=== PATIENT | female | born 1960 | race Caucasian/White ===

== ENCOUNTER 2017-12-19 17:17 | Emergency (ER) | payer SELFPAY ==
[2017-12-19 17:42] VITALS: BP 142/80
--- NOTE | 2017-12-19 17:46 | UC ---
General HPI - HPI Summary HPI Summary: her to get scopolamine patch refilled---states she has been using them for years -states her pcp has retired - History of Current Complaint Chief Complaint: UCMedRefill Stated Complaint: MEDICINE REFILL Time Seen by Provider: 12/19/17 17:40 Hx Obtained From: Patient Onset/Duration: Sudden Onset Timing: Constant Onset Severity: Mild Current Severity: None - Allergy/Home Medications Allergies/Adverse Reactions: Allergies Allergy/AdvReac Type Severity Reaction Status Date / Time No Known Allergies Allergy Verified 10/22/15 17:27 PMH/Surg Hx/FS Hx/Imm Hx Previously Healthy: No - motion sickness Other History Of: Negative For: Anticoagulant Therapy - Surgical History Surgical History: Yes Surgery Procedure, Year, and Place: tubal ligation - Family History Known Family History: Positive: Other - PSORIASIS - DAD Negative: Hypertension - Social History Occupation: Employed Full-time Lives: With Family Alcohol Use: Weekly Substance Use Type: None Smoking Status (MU): Light Every Day Tobacco Smoker Type: Cigarettes Amount Used/How Often: 5 cig./day - Immunization History Most Recent Influenza Vaccination: fall Most Recent Tetanus Shot: up to date Most Recent Pneumonia Vaccination: none Review of Systems Constitutional: Negative Skin: Negative Eyes: Negative ENT: Negative Respiratory: Negative Cardiovascular: Negative Gastrointestinal: Negative Genitourinary: Negative Motor: Negative Neurovascular: Negative Musculoskeletal: Negative Neurological: Negative Psychological: Negative Is Patient Immunocompromised?: No All Other Systems Reviewed And Are Negative: Yes Physical Exam Triage Information Reviewed: Yes Appearance: Well-Appearing, No Pain Distress, Well-Nourished Vital Signs Reviewed: Yes Eye Exam: Normal Eyes: Positive: Conjunctiva Clear ENT Exam: Normal ENT: Negative: Tonsillar swelling, Tonsillar exudate, Trismus, Muffled voice, Hoarse voice Dental Exam: Normal Neck exam: Normal Neck: Positive: Supple, Nontender Respiratory Exam: Normal Respiratory: Positive: Chest non-tender, No respiratory distress, No accessory muscle use Cardiovascular Exam: Normal Cardiovascular: Positive: RRR, Brisk Capillary Refill Musculoskeletal Exam: Normal Musculoskeletal: Positive: Strength Intact, ROM Intact, No Edema Neurological Exam: Normal Neurological: Positive: Alert, Muscle Tone Normal Psychological Exam: Normal Skin Exam: Normal Course/Dx - Course Course Of Treatment: refill scopolamine and refer to to pcp - Differential Dx - Multi-Symptom Provider Diagnoses: motion illness Discharge - Discharge Plan Condition: Stable Disposition: HOME Prescriptions: Scopolamine 1.5 mg* PATCH* [Transderm-Scop 1.5 mg Patch*] 1.5 mg TRANSDERM Q72HR #10 patch Patient Education Materials: Vertigo (ED), Hypertension (ED) [place] [facility] [place] [facility] [place]] - 2 Weeks
== END 2017-12-19 17:51 | disposition home or self-care (01) ==
LOC: UCEAST 17:17
DX: T75.3XXA Motion sickness, initial encounter (principal); Y92.818 Other transport vehicle as the place of occurrence of the external cause; Z76.0 Encounter for issue of repeat prescription; F17.210 Nicotine dependence, cigarettes, uncomplicated
CPT/HCPCS: 99212; G0463

== ENCOUNTER 2018-02-03 04:41 | Emergency (ER) | payer SELFPAY ==
[2018-02-03] MEDS ORDERED: Albuterol/Ipratropium NEB.SOL* Albuterol 2.5 MG/Ipratropium 0.5 MG 3 ML INH ONE (05:10)
[2018-02-03] MEDS ORDERED: Ibuprofen TAB* 800 MG PO ONE (05:11)
[2018-02-03] MEDS ORDERED: Oseltamivir CAP* 75 MG CAP PO ONE (06:13)
[2018-02-03] MEDS: Albuterol 2.5 MG/3 ML NEB.SOL* (0.083%) INH SCH (06:21)
[2018-02-03] MEDS ORDERED: Albuterol HFA INHALER* 8 gm MDI INH ONE (06:23)
[2018-02-03] MEDS ORDERED: Albuterol HFA INHALER* 8 gm MDI INH PRN (06:23)
--- NOTE | 2018-02-03 06:28 | ED ---
Sony Whipple Stephanie, scribed for Blanca Stephens MD on 02/03/18 at 0539 . Influenza-Like Illness - HPI Summary HPI Summary: The pt is a 58 y/o F presenting to the ED with c/o influenza-like symptoms that began 3 weeks ago. Symptoms include SOB, sore throat, LOC, chest congestion, GARAY and fever (101 F). - History of Current Complaint Chief Complaint: EDFluSymptoms Time Seen by Provider: 02/03/18 05:00 Hx Obtained From: Patient Onset/Duration: Gradual Onset, Lasting Weeks - 3, Still Present Severity: Moderate Associated Signs & Symptoms: Fever, Sore Throat, Headache - Allergy/Home Medications Allergies/Adverse Reactions: Allergies Allergy/AdvReac Type Severity Reaction Status Date / Time sulfamethoxazole Allergy Nausea And Verified 02/03/18 04:47 [From Bactrim] Vomiting trimethoprim [From Bactrim] Allergy Nausea And Verified 02/03/18 04:47 Vomiting PMH/Surg Hx/FS Hx/Imm Hx Endocrine/Hematology History: Denies: Hx Anticoagulant Therapy, Hx Diabetes, Hx Systemic Lupus Erythematosus, Hx Thyroid Disease Cardiovascular History: Denies: Hx Congestive Heart Failure, Hx Hypertension, Hx Pacemaker/ICD Respiratory History: Denies: Hx Asthma, Hx Chronic Obstructive Pulmonary Disease (COPD) GI History: Denies: Hx Ulcer History: Denies: Hx Dialysis, Hx Renal Disease Musculoskeletal History: Denies: Hx Rheumatoid Arthritis Neurological History: Denies: Hx Dementia, Hx Seizures Psychiatric History: Denies: Hx Substance Abuse - Cancer History Hx Chemotherapy: No - Surgical History Surgery Procedure, Year, and Place: tubal ligation Infectious Disease History: No Infectious Disease History: Denies: Hx Hepatitis, Hx Human Immunodeficiency Virus (HIV), History Other Infectious Disease, Traveled Outside the [place] in Last 30 Days - Family History Known Family History: Positive: Other - PSORIASIS - DAD Negative: Hypertension - Social History Occupation: Employed Full-time Lives: With Family Alcohol Use: Weekly Substance Use Type: Reports: None Smoking Status (MU): Light Every Day Tobacco Smoker Type: Cigarettes Amount Used/How Often: 5 cig./day Review of Systems Positive: Fever Positive: Sore Throat Positive: Other - chest congestion Positive: Shortness Of Breath Neurological: Other - LOC Positive: Headache All Other Systems Reviewed And Are Negative: Yes Physical Exam - Summary Physical Exam Summary: VITAL SIGNS: Reviewed. GENERAL: Patient is a well-developed and nourished FEMALE who is lying comfortable in the stretcher. Patient is not in any acute respiratory distress. HEAD AND FACE: No signs of trauma. No ecchymosis, hematomas or skull depressions. No sinus tenderness. EYES: PERRLA, EOMI x 2, No injected conjunctiva, no nystagmus. EARS: Hearing grossly intact. Ear canals and tympanic membranes are within normal limits. MOUTH: Oropharynx within normal limits. NECK: Supple, trachea is midline, no adenopathy, no JVD, no carotid bruit, no c- spine tenderness, neck with full ROM. CHEST: Symmetric, no tenderness at palpation LUNGS: decreased breath sounds bilaterally. No wheezing or crackles. CVS: Regular rate and rhythm, S1 and S2 present, no murmurs or gallops appreciated. ABDOMEN: Soft, non-tender. No signs of distention. No rebound no guarding, and no masses palpated. Bowel sounds are normal. EXTREMITIES: FROM in all major joints, no edema, no cyanosis or clubbing. NEURO: Alert and oriented x 3. No acute neurological deficits. Speech is normal and follows commands. SKIN: Dry and warm Triage Information Reviewed: Yes Vital Signs On Initial Exam: Initial Vitals Temp Pulse Resp BP Pulse Ox 97.1 F 102 16 128/82 92 02/03/18 04:44 02/03/18 04:44 02/03/18 04:44 02/03/18 04:44 02/03/18 04:44 Vital Signs Reviewed: Yes Diagnostics - Vital Signs Vital Signs Temp Pulse Resp BP Pulse Ox 02/03/18 04:44 97.1 F 102 16 128/82 92 - Laboratory Lab Statement: Any lab studies that have been ordered have been reviewed, and results considered in the medical decision making process. - Radiology CXR Xray Interpretation: No Acute Changes Radiology Interpretation Completed By: ED Physician - No acute process. Pending official report. Flu Symptom Course/Dx - Course Course Of Treatment: The pt is a 58 y/o F presenting to the ED with c/o influenza-like symptoms that began 3 weeks ago. Symptoms include SOB, sore throat, LOC, chest congestion, GARAY and fever (101 F). The pt tested positive for influenza. She will be discharged home. - Diagnoses Provider Diagnoses: Influenza Discharge - Discharge Plan Condition: Stable Disposition: HOME Patient Education Materials: Influenza (ED) Referrals: No Primary Care Phys,NOPCP [Primary Care Provider] - Additional Instructions: RETURN TO EMERGENCY DEPARTMENT FOR ANY NEW OR WORSENING SYMPTOMS The documentation as recorded by the Sony boyd Stephanie accurately reflects the service I personally performed and the decisions made by , Blanca Stephens MD.
[2018-02-03 06:39] VITALS: BP 123/84
--- NOTE | 2018-02-03 08:26 | RAD ---
INDICATION: Cough COMPARISON: Chest x-ray dated December 02, 2015 TECHNIQUE: Single AP portable view of the chest was obtained. FINDINGS: Image quality is compromised due to the relative inferiority of a portable chest x-ray. The heart and mediastinum exhibit normal size and contour. The lungs are grossly clear. There is no evidence of a large pleural effusion. Visualized bones are normal for the patient's age. IMPRESSION: No radiographic evidence for acute cardiopulmonary abnormality on this portable chest x-ray.
== END 2018-02-03 06:35 | disposition home or self-care (01) ==
LOC: ED 04:41
DX: J11.1 Influenza due to unidentified influenza virus with other respiratory manifestations (principal); F17.210 Nicotine dependence, cigarettes, uncomplicated; Z88.3 Allergy status to other anti-infective agents
CPT/HCPCS: 71045; 87502; 94640; 99283; A9270-GY

== ENCOUNTER 2018-05-26 18:35 | Emergency (ER) | payer SELFPAY ==
[2018-05-26 19:07] VITALS: BP 129/78
--- NOTE | 2018-05-26 20:05 | UC ---
General HPI - HPI Summary HPI Summary: Patient is a 58-year-old female presenting to the requesting refill on her scopolamine patch medication. Patient of and he has been out of town for a few weeks. She has been taking this medication since she was a teenager. The patch is placed and removed every 3 days and she is requesting a 30 day supply. This is for ongoing dizziness. She is currently asymptomatic. - History of Current Complaint Hx Obtained From: Patient Pain Intensity: 0 <Gracy Fisher - Last Filed: 05/26/18 20:02> <Taylor Carlos - Last Filed: 05/26/18 20:53> - History of Current Complaint Chief Complaint: UCMedRefill Stated Complaint: REFILL ON MEDS Time Seen by Provider: 05/26/18 19:02 - Allergy/Home Medications Allergies/Adverse Reactions: Allergies Allergy/AdvReac Type Severity Reaction Status Date / Time sulfamethoxazole Allergy Nausea And Verified 05/26/18 19:08 [From Bactrim] Vomiting trimethoprim [From Bactrim] Allergy Nausea And Verified 05/26/18 19:08 Vomiting PMH/Surg Hx/FS Hx/Imm Hx Previously Healthy: Yes Other History Of: Negative For: Anticoagulant Therapy - Surgical History Surgical History: Yes Surgery Procedure, Year, and Place: tubal ligation - Family History Known Family History: Positive: Other - PSORIASIS - DAD Negative: Hypertension - Social History Occupation: Employed Full-time Lives: With Family Alcohol Use: Weekly Substance Use Type: None Smoking Status (MU): Light Every Day Tobacco Smoker Type: Cigarettes Amount Used/How Often: 5 cig./day - Immunization History Most Recent Influenza Vaccination: fall Most Recent Tetanus Shot: up to date Most Recent Pneumonia Vaccination: none <Gracy Fisher - Last Filed: 05/26/18 20:02> Review of Systems Constitutional: Negative Skin: Negative Respiratory: Negative Cardiovascular: Negative Gastrointestinal: Negative Motor: Negative Neurological: Negative Is Patient Immunocompromised?: No All Other Systems Reviewed And Are Negative: Yes <Gracy Fisher - Last Filed: 05/26/18 20:02> Physical Exam Triage Information Reviewed: Yes Appearance: Well-Appearing, No Pain Distress, Well-Nourished Vital Signs: Initial Vital Signs Temp 98.2 F 05/26/18 19:02 Pulse 97 05/26/18 19:02 Resp 20 05/26/18 19:02 BP 129/78 05/26/18 19:02 Pulse Ox 96 05/26/18 19:02 Vital Signs Reviewed: Yes Eye Exam: Normal Neck exam: Normal Neck: Positive: Supple, No Lymphadenopathy Respiratory Exam: Normal Respiratory: Positive: Chest non-tender, Lungs clear Cardiovascular Exam: Normal Cardiovascular: Positive: RRR Musculoskeletal Exam: Normal Psychological Exam: Normal Psychological: Positive: Normal Response To Family Skin Exam: Normal <Gracy Fisher - Last Filed: 05/26/18 20:02> Vital Signs: Initial Vital Signs Temp 98.2 F 05/26/18 19:02 Pulse 97 05/26/18 19:02 Resp 20 05/26/18 19:02 BP 129/78 05/26/18 19:02 Pulse Ox 96 05/26/18 19:02 <Taylor Carlos - Last Filed: 05/26/18 20:53> Course/Dx - Course Course Of Treatment: refill medication on scopolamine patch sent to pharmacy. She is given 30 day supply and is to follow back up with her PCP for further prescriptions. - Differential Dx - Multi-Symptom Provider Diagnoses: Refill request <Gracy Fisher - Last Filed: 05/26/18 20:02> Discharge - Sign-Out/Discharge Documenting (check all that apply): Discharge/Admit/Transfer - Billing Disposition and Condition Condition: STABLE Disposition: Home <Gracy Fisher - Last Filed: 05/26/18 20:02> - Billing Disposition and Condition Condition: STABLE Disposition: Home <Taylor Carlos - Last Filed: 05/26/18 20:53> - Discharge Plan Condition: Stable Disposition: HOME Referrals: No Primary Care Phys,NOPCP [Primary Care Provider] - Attestation Statement User Type: Provider - I was available for consult. This patient was seen by the JENNIFER. The patient was not presented to, seen by, or examined by me. -Ljj <Taylor Carlos - Last Filed: 05/26/18 20:53>
== END 2018-05-26 19:09 | disposition home or self-care (01) ==
LOC: UCEAST 18:35
DX: Z76.0 Encounter for issue of repeat prescription (principal)
CPT/HCPCS: 99201; 99212; G0463

== ENCOUNTER 2018-07-03 11:34 | Emergency (ER) | payer SELFPAY ==
[2018-07-03 12:28] VITALS: BP 123/63
--- NOTE | 2018-07-03 15:17 | UC ---
General HPI - HPI Summary HPI Summary: 58 y/o female presents to the urgent care requesting medication refill for her Scopolamine patches for her Vertigo.. Pt reports her PCP retired and her health insurance was change and she hasn't found a PCP yet that is in her network. Pt states she has taking Scopolamine patch for the past 20 years. It is the only medication that helps her w/ her vertigo and allows her to be functional. Pt denies fever, dizziness, GARAY, SOB, chest pain, abdominal pain, N/v /D. - History of Current Complaint Chief Complaint: UCMedRefill Stated Complaint: RX REFILL Time Seen by Provider: 07/03/18 14:52 Hx Obtained From: Patient Hx Last Menstrual Period: post menopause Onset/Duration: Gradual Onset, Still Present Timing: Intermittent Episodes Lasting: Onset Severity: Mild Current Severity: None Pain Intensity: 0 Associated Signs & Symptoms: Negative: Agitation, Confusion, Chest Pain, Dizziness, Nausea, SOB, Vomiting - Allergy/Home Medications Allergies/Adverse Reactions: Allergies Allergy/AdvReac Type Severity Reaction Status Date / Time sulfamethoxazole Allergy Nausea And Verified 05/26/18 19:08 [From Bactrim] Vomiting trimethoprim [From Bactrim] Allergy Nausea And Verified 05/26/18 19:08 Vomiting PMH/Surg Hx/FS Hx/Imm Hx Previously Healthy: Yes Respiratory History: Asthma Other Neurological History: Vertigo Other History Of: Negative For: Anticoagulant Therapy - Surgical History Surgical History: Yes Surgery Procedure, Year, and Place: tubal ligation - Family History Known Family History: Positive: Hypertension, Diabetes Family History: Vertigo, Lupus, Breast cancer, Prostate cancer and PSORIASIS - DAD - Social History Alcohol Use: Weekly Substance Use Type: None Smoking Status (MU): Light Every Day Tobacco Smoker Type: Cigarettes Amount Used/How Often: 5 cig./day - Immunization History Most Recent Influenza Vaccination: 2015 fall Most Recent Tetanus Shot: up to date Most Recent Pneumonia Vaccination: none Review of Systems Constitutional: Negative Skin: Negative Eyes: Negative ENT: Negative Respiratory: Negative Cardiovascular: Negative Gastrointestinal: Negative Genitourinary: Negative Motor: Negative Neurovascular: Negative Musculoskeletal: Negative Neurological: Negative Psychological: Negative Is Patient Immunocompromised?: No All Other Systems Reviewed And Are Negative: Yes Physical Exam - Summary Physical Exam Summary: VITAL SIGNS: Reviewed. GENERAL: Patient is a well developed and nourished obese female who is sitting comfortable in the examining table. Patient is not in any acute respiratory distress. HEAD AND FACE: No signs of trauma. No ecchymosis, hematomas or skull depressions. No sinus tenderness. EYES: PERRLA, EOMI x 2, No injected conjunctiva, no nystagmus. No photophobia. EARS: Hearing grossly intact. Ear canals and tympanic membranes are within normal limits. Nose: edematous and erythematous nasal mucosa w/ clear nasal discharge. MOUTH: Positive no erythema, no tonsillar enlargement. Uvula in midline. NECK: Supple, trachea is midline, Positive anterior cervical lymphadenopathy, no JVD, no carotid bruit, no c-spine tenderness, neck with full ROM. No meningeal signs, no Kernig's or brudzinskis signs. CHEST: Symmetric, no tenderness at palpation LUNGS: Clear to auscultation bilaterally. No wheezing or crackles. CVS: Regular rate and rhythm, S1 and S2 present, no murmurs or gallops appreciated. ABDOMEN: Soft, non-tender. No signs of distention. No rebound no guarding, and no masses palpated. Bowel sounds are normal. EXTREMITIES: FROM in all major joints, no edema, no cyanosis or clubbing. NEURO: Alert and oriented x 3. No acute neurological deficits. Speech is normal and follows commands. SKIN: Dry and warm Triage Information Reviewed: Yes Vital Signs: Initial Vital Signs Temp 97.7 F 07/03/18 12:22 Pulse 73 07/03/18 12:22 Resp 16 07/03/18 12:22 BP 123/63 07/03/18 12:22 Pulse Ox 95 07/03/18 12:22 Course/Dx - Course Course Of Treatment: 58 y/o female presents to the urgent care requesting medication refill for her Scopolamine patches for her Vertigo.. Pt reports her PCP retired and her health insurance was change and she hasn't found a PCP yet that is in her network. Pt states she has taking Scopolamine patch for the past 20 years. It is the only medication that helps her w/ her vertigo and allows her to be functional. Pt denies fever, dizziness, GARAY, SOB, chest pain, abdominal pain, N/v/D.Hx obtained.PE: WNL. As per records Pt has been Rx Scopolamine patch in the past here in the urgent care. Pt Rx patches and strongly advised to f/u w/ a PCP from [facility] network for further management in her Vertigo. Pt understood and agreed w/ plan of care and left the clinic hemodynamically stable and ambulating. - Differential Dx - Multi-Symptom Differential Diagnoses: Other - Vertigo, BPPV, menieers disease, laberynthitis Provider Diagnoses: 1- Vertigo Discharge - Sign-Out/Discharge Documenting (check all that apply): Patient Departure - D/C home - Discharge Plan Condition: Stable Disposition: HOME Prescriptions: Scopolamine 1.5 mg* PATCH* [Transderm-Scop 1.5 mg Patch*] 1.5 mg TRANSDERM Q72HR #10 patch Patient Education Materials: Vertigo (ED) Referrals: [facility] REFERR[facility] [Outside] - 1 Week Additional Instructions: 1-Please apply patch as directed to alleviate dizziness. 2- Please f/u w/ a PCP form the [facility] network for further management in your Vertigo. - Billing Disposition and Condition Condition: STABLE Disposition: Home
== END 2018-07-03 15:19 | disposition home or self-care (01) ==
LOC: UCEAST 11:34
DX: R42 Dizziness and giddiness (principal); Z76.0 Encounter for issue of repeat prescription; Z88.2 Allergy status to sulfonamides; F17.210 Nicotine dependence, cigarettes, uncomplicated
CPT/HCPCS: 99212; G0463

== ENCOUNTER 2018-10-16 17:51 | Emergency (ER) | payer SELFPAY ==
[2018-10-16 18:08] VITALS: BP 120/76
--- NOTE | 2018-10-16 18:25 | UC ---
Respiratory Complaint HPI - HPI Summary HPI Summary: Pt returns for a re-check of her cough. Pt was evaluated at on 10/13/2018 with fever, cough. Pt was diagnosed with pna based on exam. rx albuterol MDI and zpack. Pt states no aerochamber. Pt states short term improvement with mdi - ran out yesterday. Pt states contninues to cough with yellow sputum. No recurrent fevers. no rash. 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 No chest pain. No n/v/d. Pt states smokes cigarettes -decrease this week. Decreased sleep related to cough. Decreased appetite Pt's medications reviewed this visit - History of Current Complaint Chief Complaint: UCRespiratory Stated Complaint: RE-CK UPPER RESPIRATORY Time Seen by Provider: 10/16/18 18:24 Hx Obtained From: Patient, Medical Records - 10/13/18 visit note Hx Last Menstrual Period: post menopause ?: No Onset/Duration: Gradual Onset Severity Initially: Mild Severity Currently: Mild - ribs Pain Intensity: 2 Character: Cough: Productive - yellow sputum Alleviating Factors: Bronchodilator - last use yesterday Associated Signs And Symptoms: Positive: Wheezing, URI - Allergies/Home Medications Allergies/Adverse Reactions: Allergies Allergy/AdvReac Type Severity Reaction Status Date / Time sulfamethoxazole Allergy Nausea And Verified 10/16/18 18:19 [From Bactrim] Vomiting trimethoprim [From Bactrim] Allergy Nausea And Verified 10/16/18 18:19 Vomiting PMH/Surg Hx/FS Hx/Imm Hx Previously Healthy: Yes Other Respiratory History: none Other History Of: Negative For: Anticoagulant Therapy - Surgical History Surgical History: Yes Surgery Procedure, Year, and Place: tubal ligation - Family History Known Family History: Positive: Hypertension, Diabetes, Other - PSORIASIS - DAD Family History: Vertigo, Lupus, Breast cancer, Prostate cancer and PSORIASIS - DAD - Social History Occupation: Employed Full-time Lives: With Family Alcohol Use: Weekly Substance Use Type: None Smoking Status (MU): Light Every Day Tobacco Smoker Type: Cigarettes Amount Used/How Often: 5 cig./day - Immunization History Most Recent Influenza Vaccination: 2018 Most Recent Tetanus Shot: up to date Most Recent Pneumonia Vaccination: none Review of Systems All Other Systems Reviewed And Are Negative: Yes Constitutional: Positive: Fatigue Respiratory: Positive: Shortness Of Breath - with activity, Cough Cardiovascular: Positive: Negative Gastrointestinal: Positive: Negative Physical Exam - Summary Physical Exam Summary: Vital Signs Reviewed: Yes A+Ox3, no distress, coarse cough Eyes: Conjunctiva Clear, WILL. EOM intact and full ENT: Hearing grossly normal TM x 2 clear, mmoist, uvula midline, no exudate, no erythema Neck: Positive: Supple Respiratory: Positive: No respiratory distress, No accessory muscle use coarse cough, rhonci right lung, + scattered wheeze Cardiovascular: RRR nl s1, s2 no m/r CBT <2 sec abd soft + BS nt/nd no guarding, no distension Musculoskeletal Exam: AMAYA x 4 without difficulty Strength Intact, ROM Intact Neurological: Positive: Alert, + sensation throughout Psychological: Positive: Normal Response To Family Skin: Positive: no rash, no ecchymosis Triage Information Reviewed: Yes Vital Signs: Initial Vital Signs Temp 98.8 F 10/16/18 18:00 Pulse 99 10/16/18 18:00 Resp 20 10/16/18 18:00 BP 120/76 10/16/18 18:00 Pulse Ox 92 10/16/18 18:00 Diagnostic Evaluation - Laboratory O2 Sat by Pulse Oximetry: 92 - Radiology Radiology Interpretation Completed By: ED Physician - no infiltrate Re-Evaluation - Re-Evaluation First Eval Re-Evaluation Time: 18:57 Change: Improved Comment: Pt markedly improved no wheeze. states feels much better. Will Rx pred. continue zithromax. albuterol with MDI. physician referral. secertion precaution. strict return precaution. pts sats conitnue 93% pt states feels well. will d/c home - recommendation to ED prn - pt comfortable and in agreement Respiratory Course/Dx - Course Course Of Treatment: Patient presents with ongoing cough with yellow sputum since early last week. Patient's fevers have subsided. Patient was treated for pneumonia symptomatically given a Z-Eduar. Patient also given albuterol that she has used up. Patient states she continues to feel short of breath with activity have a cough productive yellow sputum. No rash. Decreased appetite. Decreased sleep. Patient does smoke cigarettes. On exam vital signs reveal oxygen saturation 91%. Patient was 96-97% at last encounter. Patient with rhonchi in the right side as well as diffuse expiratory wheezing. We'll prescribe a DuoNeb as well as chest x-ray. We'll also start patient on prednisone. Close monitoring. Patient is on improve we'll send emergency permit. Patient comfortable in agreement with plan. - Differential Dx/Diagnosis Provider Diagnoses: CAP Discharge - Sign-Out/Discharge Documenting (check all that apply): Patient Departure All imaging exams completed and their final reports reviewed: No - Discharge Plan Condition: Stable Disposition: HOME Prescriptions: predniSONE TAB* [Deltasone TAB*] 50 mg PO DAILY #4 tab Patient Education Materials: Acute Bronchitis (ED) Referrals: No Primary Care Phys,NOPCP [Primary Care Provider] - [facility] [Outside] Additional Instructions: -Continue antibiotics exactly as prescribed until gone -Use your albuterol puffer - 2 puffs ever 4 hours for the next 3 days - use with spacer - then as needed -Stay well hydrated - avoid excess caffeine and all alcohol - eat regular, healthy meals - - humidify the air in the room where you sleep - boil water, run a hot steam shower, vaporizer, cups of water by heat register - okay to take over the counter decongestant and cough medication -- These infections are spread by secretions - do NOT share eating or drinking utensils - clean items you share with other people such as cell phones, computer mouse, TV remote, computer tablets,etc.. Once you have been antibiotics for 2 days, change your toothbrush and your pillowcase. - take prednisone daily as prescribed - work to discontinue smoking -Contact the physician referral center to assist in establishing with a new PCP. Call your doctor, return here or go to the emergency department with any questions or concerns - Billing Disposition and Condition Condition: STABLE Disposition: Home
[2018-10-16] MEDS ORDERED: predniSONE TAB* 20 MG PO ONE (18:29)
[2018-10-16] MEDS ORDERED: Albuterol/Ipratropium NEB.SOL* Albuterol 2.5 MG/Ipratropium 0.5 MG 3 ML INH ONE (18:29)
[2018-10-16] MEDS ORDERED: Ipratropium 0.5MG/2.5ML NEB* 0.5 MG/2.5 ML NEB.SOLN INH ONE (18:33)
[2018-10-16] MEDS ORDERED: Albuterol 2.5 MG/3 ML NEB.SOL* (0.083%) INH ONE (18:33)
[2018-10-16] MEDS ORDERED: Albuterol HFA INHALER* 8 gm MDI INH ONE (18:59)
--- NOTE | 2018-10-17 08:56 | UC ---
- Progress Note Progress Note: CXR: IMPRESSION: No radiographic evidence of acute cardiopulmonary disease. No change in plan of care Re-Evaluation - Re-Evaluation First Eval Re-Evaluation Time: 18:57 Change: Improved Comment: Pt markedly improved no wheeze. states feels much better. Will Rx pred. continue zithromax. albuterol with MDI. physician referral. secertion precaution. strict return precaution. pts sats conitnue 93% pt states feels well. will d/c home - recommendation to ED prn - pt comfortable and in agreement Discharge - Sign-Out/Discharge Documenting (check all that apply): Post-Discharge Follow Up All imaging exams completed and their final reports reviewed: Yes - Discharge Plan Condition: Stable Disposition: HOME Prescriptions: predniSONE TAB* [Deltasone TAB*] 50 mg PO DAILY #4 tab Patient Education Materials: Acute Bronchitis (ED) Referrals: [facility] [place] [facility] [Outside] No Primary Care Phys,NOPCP [Primary Care Provider] - Additional Instructions: -Continue antibiotics exactly as prescribed until gone -Use your albuterol puffer - 2 puffs ever 4 hours for the next 3 days - use with spacer - then as needed -Stay well hydrated - avoid excess caffeine and all alcohol - eat regular, healthy meals - - humidify the air in the room where you sleep - boil water, run a hot steam shower, vaporizer, cups of water by heat register - okay to take over the counter decongestant and cough medication -- These infections are spread by secretions - do NOT share eating or drinking utensils - clean items you share with other people such as cell phones, computer mouse, TV remote, computer tablets,etc.. Once you have been antibiotics for 2 days, change your toothbrush and your pillowcase. - take prednisone daily as prescribed - work to discontinue smoking -Contact the physician referral center to assist in establishing with a new PCP. Call your doctor, return here or go to the emergency department with any questions or concerns - Billing Disposition and Condition Condition: STABLE Disposition: Home
== END 2018-10-16 19:10 | disposition home or self-care (01) ==
LOC: UCEAST 17:51
DX: J18.9 Pneumonia, unspecified organism (principal); F17.210 Nicotine dependence, cigarettes, uncomplicated; Z88.2 Allergy status to sulfonamides
CPT/HCPCS: 71046; 99213; A9270-GY; G0463; J7512

== ENCOUNTER 2019-09-11 17:28 | Emergency (ER) | payer BC ==
[2019-09-11 17:48] VITALS: BP 122/73
--- NOTE | 2019-09-11 17:59 | UC ---
Skin Complaint HPI - HPI Summary HPI Summary: 59-year-old female who pulled a tick off of her right upper shoulder today. She thought it was a skin tag. She is unsure of the duration the tick was embedded. - History of Current Complaint Chief Complaint: UCSkin Time Seen by Provider: 09/11/19 17:56 Stated Complaint: ticK BITE Hx Obtained From: Patient Hx Last Menstrual Period: post menopause ?: No Onset/Duration: Gradual Onset Skin Exposure Onset/Duration: Minutes Ago Timing: Constant Onset Severity: Mild Current Severity: Mild Pain Intensity: 2 Location: Other - Right shoulder Character: Redness - Very small amount of redness where the tick was embedded. Aggravating Factor(s): Nothing Alleviating Factor(s): Nothing Associated Signs & Symptoms: Positive: Negative Related History: Insect Bite/Sting - Allergy/Home Medications Allergies/Adverse Reactions: Allergies Allergy/AdvReac Type Severity Reaction Status Date / Time No Known Allergies Allergy Verified 09/11/19 17:49 PMH/Surg Hx/FS Hx/Imm Hx Previously Healthy: Yes Other History Of: Negative For: Anticoagulant Therapy - Surgical History Surgical History: Yes Surgery Procedure, Year, and Place: tubal ligation - Family History Known Family History: Positive: Hypertension, Diabetes, Other - PSORIASIS - DAD Family History: Vertigo, Lupus, Breast cancer, Prostate cancer and PSORIASIS - DAD - Social History Alcohol Use: Occasionally Substance Use Type: None Smoking Status (MU): Light Every Day Tobacco Smoker Type: Cigarettes Amount Used/How Often: 5 cig./day - Immunization History Most Recent Influenza Vaccination: 2018 Most Recent Tetanus Shot: up to date Most Recent Pneumonia Vaccination: none Review of Systems All Other Systems Reviewed And Are Negative: Yes Skin: Positive: Other - Reddened area right shoulder with a tick was embedded. Is Patient Immunocompromised?: No Physical Exam Triage Information Reviewed: Yes Appearance: Well-Appearing, No Pain Distress, Well-Nourished Vital Signs: Initial Vital Signs Temp 97.8 F 09/11/19 17:46 Pulse 93 09/11/19 17:46 Resp 12 09/11/19 17:46 BP 122/73 09/11/19 17:46 Pulse Ox 96 09/11/19 17:46 Vital Signs Reviewed: Yes Skin: Positive: Other - Patient has a small red circular area which is approximately 0.5 cm in diameter where the tick was embedded. The tick is no longer there. Course/Dx - Course Course Of Treatment: I'm going to give the patient a prophylactic dose of doxycycline 200 mg by mouth. She is to observe for signs of Lyme disease which were discussed with her in her discharge instructions. She is to follow-up with her primary care provider as needed. - Diagnoses Provider Diagnosis: Tick bite Discharge ED - Sign-Out/Discharge Documenting (check all that apply): Patient Departure All imaging exams completed and their final reports reviewed: No Studies - Discharge Plan Condition: Good Disposition: HOME Prescriptions: DOXYcycline CAP(*) [DOXYcycline 100MG CAP(*)] 200 mg PO DAILY 1 Days #2 cap Patient Education Materials: Tick Bite (ED) Referrals: [facility] [Outside] No Primary Care Phys,NOPCP [Primary Care Provider] - Additional Instructions: Follow up with [facility] or your primary care doctor if you develop fever, chills, rash, body aches. - Billing Disposition and Condition Condition: GOOD Disposition: Home
== END 2019-09-11 18:11 | disposition home or self-care (01) ==
LOC: UCEAST 17:28
DX: S40.261A Insect bite (nonvenomous) of right shoulder, initial encounter (principal); F17.210 Nicotine dependence, cigarettes, uncomplicated; Z78.0 Asymptomatic menopausal state; W57.XXXA Bitten or stung by nonvenomous insect and other nonvenomous arthropods, initial encounter; Y92.9 Unspecified place or not applicable
CPT/HCPCS: 99212; G0463

== ENCOUNTER 2019-12-25 16:00 | Emergency (ER) | payer BC ==
--- NOTE | 2019-12-25 16:54 | UC ---
Respiratory Complaint HPI - HPI Summary HPI Summary: 59 yo female presents with URI symptoms. She tells me that for the last 5-6 days she has had sinus pain/pressure/congestion. Over the last 2 days has had an intermittently productive cough - states she is an exsmoker and gets wheezing from time to time. Has had albuterol inhalers in the past, but not recently. Denies fever, chills, sore throat, SOB, chest pain, n/v - History of Current Complaint Stated Complaint: URI SYMPTOMS Time Seen by Provider: 12/25/19 16:53 Hx Obtained From: Patient Hx Last Menstrual Period: post menopause Onset/Duration: Gradual Onset Severity Initially: Mild Severity Currently: Mild Pain Intensity: 3 Pain Scale Used: 0-10 Numeric - Allergies/Home Medications Allergies/Adverse Reactions: Allergies Allergy/AdvReac Type Severity Reaction Status Date / Time No Known Allergies Allergy Verified 12/25/19 16:55 Home Medications: Home Medications Clobetasol 0.05% OINT* 1 applic TOPICAL DAILY 12/25/19 [History Confirmed ] Dm/PE/Acetaminophen/Doxylamine [Vicks Dayquil-Nyquil Cold-Flu] 1 tab PO ONCE PRN 12/25/19 [History Confirmed 12/25/19] Ibuprofen 400 mg PO ONCE PRN 12/25/19 [History Confirmed 12/25/19] PMH/Surg Hx/FS Hx/Imm Hx - Additional Past Medical History Additional PMH: None Other History Of: Negative For: Anticoagulant Therapy - Surgical History Surgical History: Yes Surgery Procedure, Year, and Place: tubal ligation - Family History Known Family History: Positive: Hypertension, Diabetes, Other - PSORIASIS - DAD Family History: Vertigo, Lupus, Breast cancer, Prostate cancer and PSORIASIS - DAD - Social History Lives: With Family Alcohol Use: Occasionally Substance Use Type: None Smoking Status (MU): Light Every Day Tobacco Smoker Type: Cigarettes Amount Used/How Often: 5 cig./day - Immunization History Most Recent Influenza Vaccination: 2018 Most Recent Tetanus Shot: up to date Most Recent Pneumonia Vaccination: none Review of Systems All Other Systems Reviewed And Are Negative: No Constitutional: Positive: Negative Skin: Positive: Negative Eyes: Positive: Negative ENT: Positive: Nasal Discharge, Sinus Congestion, Sinus Pain/Tenderness Respiratory: Positive: Cough Cardiovascular: Positive: Negative Gastrointestinal: Positive: Negative Neurological: Positive: Negative Psychological: Positive: Negative Physical Exam - Summary Physical Exam Summary: GENERAL: NAD. WDWN. No pain distress. SKIN: No rashes, sores, lesions, or open wounds. HEENT: Head: AT/NC Eyes: EOM intact. Conjunctiva clear without inflammation or discharge. Ears: Hearing grossly normal. TMs intact, no bulging, erythema, or edema. Nose: Nasal mucosa mildly swollen and erythematous with discharge. TTP maxillary and frontal sinus. Positive post nasal drip Throat: Posterior oropharynx without exudates, erythema, or tonsillar enlargement. Uvula midline. NECK: Supple. Nontender. No lymphadenopathy. CHEST: CTAB. No r/r/w. No accessory muscle use. Breathing comfortably and in no distress. CV: RRR. Pulses intact. NEURO: Alert. PSYCH: Age appropriate behavior. Triage Information Reviewed: Yes Vital Signs: Vital Signs: Temp Pulse Resp BP Pulse Ox 97.7 F 98 18 142/84 95 12/25/19 16:50 12/25/19 16:50 12/25/19 16:50 12/25/19 16:50 12/25/19 16:50 Vital Signs Reviewed: Yes Respiratory Course/Dx - Course Course Of Treatment: Sinusitis - Differential Dx/Diagnosis Provider Diagnosis: Sinusitis Discharge ED - Sign-Out/Discharge Documenting (check all that apply): Patient Departure All imaging exams completed and their final reports reviewed: No Studies - Discharge Plan Condition: Stable Disposition: HOME Prescriptions: Albuterol HFA INHALER* [Ventolin HFA Inhaler*] 1 puff INH Q6H PRN #1 mdi PRN Reason: Cough Amoxicillin PO (*) [Amoxicillin 875 MG (*)] 875 mg PO BID #14 tab Patient Education Materials: Sinusitis (ED) Referrals: Cesar Ansari MD [Primary Care Provider] - Additional Instructions: If you develop a fever, shortness of breath, chest pain, new or worsening symptoms - please call your PCP or go to the ED immediately. Your blood pressure was high at todays visit. Please see your primary provider within 4 weeks for recheck and re-evaluation. - Billing Disposition and Condition Condition: STABLE Disposition: Home
[2019-12-25 16:55] VITALS: BP 142/84
== END 2019-12-25 17:10 | disposition home or self-care (01) ==
LOC: UCEAST 16:00
DX: J32.9 Chronic sinusitis, unspecified (principal); F17.210 Nicotine dependence, cigarettes, uncomplicated
CPT/HCPCS: 99212; G0463